=== PATIENT | female | born 1980 | race Caucasian/White ===

== ENCOUNTER → 2021-12-04 | Outpatient (CLI) | payer OTHER ==
[2021-12-04 13:28] VITALS: BP 140/69; PULSE 124; RESP 16; TEMP 98.1; BMI 35.4
--- NOTE | 2021-12-04 14:11 | P.HPBAR ---
Bariatric H&P - History & Physicial H&P Date: 12/04/21 History & Physicial: Visit/CC: Initial Visit Patient initial contact: Initial weight: 96.615 kg Initial weight in pounds: 213.00 Height: 5 ft 5 in Initial BMI: 35.4 Last weight: Current weight: 96.615 kg Current weight in pounds: 213.00 Current BMI: 35.4 [place] body weight (based on NIH guidelines): 56.699 kg Excess body weight loss: 0.0% The patient is a 41 year-old F who presents for Bariatric Assessment. 41-year-old female here today to discuss surgical treatment of severe obesity. Patient presents interested in sleeve gastrectomy. Patient with BMI of 35.4. Medical history pertinent to her obesity includes urinary incontinence, hypercholesterolemia, hip arthritis, low vitamin D. Patient current smoker. Patient has minimal GERD symptoms. No history of DVT or dysphagia. Patient does have occasional upper abdominal pain and is concerned about the possibility of gallstones. This has not been looked into previously. Patient's heaviest weight was 222 she is 213 today. Surgical history includes tubal ligation and partial hysterectomy. Review of Systems The patient denies any acute changes in vision or hearing, no dysphagia or odynophagia, no chest pain or shortness of breath, no dysuria or hematuria, no headache, no runny nose, no rectal bleeding or melena, no unexplained weight loss Past Medical History Past Medical History: Osteoarthritis (OA) History of Any Multi-Drug Resistant Organisms: None Reported Past Surgical History: No Surgical Hx Reported Past Anesthesia/Blood Transfusion Reactions: No Reported Reaction Past Psychological History: Depression Smoking Status: Current every day smoker Past Alcohol Use History: Occasional Additional Past Alcohol Use History / Comment(s): smokes 1 pack per day Past Drug Use History: None Reported Surgical - Exam Vital Signs Temp Pulse Resp BP 98.1 F 124 H 16 140/69 12/04/21 13:25 12/04/21 13:25 12/04/21 13:25 12/04/21 13:25 Physical exam: General: Well-developed, well-nourished HEENT: Normocephalic, sclerae nonicteric Abdomen: Nontender, nondistended Extremities: No edema Neuro: Alert and oriented Bariatric Assessment & Plan (1) Severe obesity with body mass index (BMI) of 35.0 to 35.9 and comorbidity Narrative/Plan: 41-year-old female with severe obesity. Surgical options to treat obesity reviewed in detail. Both gastric bypass and sleeve gastrectomy discussed along with the associated risks and benefits. Patient remains interested in sleeve gastrectomy at this time. Patient understands that smoking cessation will be required preoperatively. She states she will start working on that now. We'll order ultrasound abdomen to evaluate for underlying cholelithiasis/cholecystitis. We'll tentatively plan EGD 4 months from now. Status: Acute Bariatric Checklist Checklist: Plan: Checklist: EGD: 1. Hiatal hernia: 2. H. Pylori: HgbA1c: Vitamin D: Smoking: Primary care physician referral: Psychiatry clearance: Cardiology clearance: Sleep study: Diet journal: VTE risk score: VTE risk level: Rehab needs at discharge:
[2021-12-04 15:05] LABS: HCT 39.3 % (34.0-46.0); HGB 12.7 gm/dL (11.4-16.0); MCH 29.5 pg (25.0-35.0); MCHC 32.4 g/dL (31.0-37.0); MCV 91.2 fL (80.0-100.0); Mean Platelet Volume 7.7; Platelet Count 232 k/uL (150-450); RBC 4.31 m/uL (3.80-5.40); RDW 14.7 % (11.5-15.5); WBC 7.9 k/uL (3.8-10.6)
[2021-12-04 23:46] LABS: ALT 25 U/L (8-44); AST 16 U/L (13-35); African American GFR (CKD) 132.9 (60.0-200.0); Albumin 4.4 g/dL (3.8-4.9); Albumin/Globulin Ratio 1.84 (1.60-3.17); Alkaline Phosphatase 74 U/L (41-126); BUN/Creat Ratio 26.37 Ratio (12.00-20.00); Blood Urea Nitrogen 14.9 mg/dL (9.0-27.0); Calcium 9.2 mg/dL (8.7-10.3); Carbon Dioxide 19.7 mmol/L (20.0-27.5); Chloride 106 mmol/L (96-109); Globulin 2.4 g/dL (1.6-3.3); Glucose 94 mg/dL (70-110); Non-African American GFR(CKD) 114.7 (60.0-200.0); Sodium 140 mmol/L (135-145); Total Bilirubin <0.20 mg/dL (0.30-1.20); Total Protein 6.8 g/dL (6.2-8.2)
== END ==
LOC: BARWHC3 13:11
PROVIDERS: ATTEND Surgery
DX: E66.01 Morbid (severe) obesity due to excess calories (principal); E78.00 Pure hypercholesterolemia, unspecified; M19.90 Unspecified osteoarthritis, unspecified site; F32.A Depression, unspecified; F17.210 Nicotine dependence, cigarettes, uncomplicated; Z68.35 Body mass index [BMI] 35.0-35.9, adult
CPT/HCPCS: 84425; 80053; 82607; 85027; 82306; 83036; 93005; 36415; G0463; 99203

== ENCOUNTER 2022-02-03 10:04 | Day surgery (SDC) | payer OTHER ==
[2022-01-29 15:04] VITALS: BMI 36.6
[~2022-02-03 10:04] MED LIST: LACTATED RINGERS 1,000 ML IV SCH; LIDOCAINE 1% (10MG/ML) FOR IV START INTRADERMA PRN
[2022-02-03 10:29] VITALS: RESP 16; TEMP 98.7
[2022-02-03] MEDS ORDERED: PROPOFOL 10 MG/ML 20 ML VIAL IV ONE (11:03)
[2022-02-03] MEDS ORDERED: LIDOCAINE 1% INJ 10MG/ML (20 ML MDV) ONE (11:03)
--- NOTE | 2022-02-03 11:06 | P.GSHP ---
History of Present Illness H&P Date: 02/03/22 Chief Complaint: GERD Patient here today for upper endoscopy. Patient previously seen in the bariatric clinic. Mild reflux symptoms. Patient interested in sleeve gastrectomy. Past Medical History Past Medical History: GERD/Reflux, Hyperlipidemia, Osteoarthritis (OA) Additional Past Medical History / Comment(s): prolapsed bladder, wears brace on rt wrist, hx gallbladder spasms/stones History of Any Multi-Drug Resistant Organisms: None Reported Past Surgical History: Hysterectomy, Tubal Ligation Additional Past Surgical History / Comment(s): mult surgeries rt wrist including fusion(last 08/2021) Past Anesthesia/Blood Transfusion Reactions: No Reported Reaction Smoking Status: Former smoker - Past Family History Mother Family Medical History: No Reported History Medications and Allergies Home Medications Medication Instructions Recorded Confirmed Type Biotin(Dose Unknown) 1 tab PO DAILY 01/29/22 01/29/22 History Collagen(Dose Unknown) 1 tab PO DAILY 01/29/22 01/29/22 History Multivitamins, Thera [Multivitamin 1 tab PO DAILY 01/29/22 01/29/22 History (formulary)] buPROPion HCL [Wellbutrin SR] 150 mg PO QAM 01/29/22 02/03/22 History Allergies Allergy/AdvReac Type Severity Reaction Status Date / Time No Known Allergies Allergy Verified 02/03/22 10:22 Surgical - Exam Vital Signs Temp Pulse Resp BP Pulse Ox 98.7 F 84 16 1148/75 98 02/03/22 10:28 02/03/22 10:28 02/03/22 10:28 02/03/22 10:28 02/03/22 10:28 Physical exam: General: Well-developed, well-nourished HEENT: Normocephalic, sclerae nonicteric Abdomen: Nontender, nondistended Extremities: No edema Neuro: Alert and oriented Assessment and Plan (1) GERD (gastroesophageal reflux disease) Narrative/Plan: Will proceed with upper endoscopy at this time. Current Visit: Yes Status: Acute Code(s): K21.9 - GASTRO-ESOPHAGEAL REFLUX DISEASE WITHOUT ESOPHAGITIS SNOMED Code(s): 746546595
--- NOTE | 2022-02-03 11:15 | P.PCN ---
Date of Procedure: 02/03/22 Procedure(s) Performed: Preoperative Dx: GERD, presurgical Postoperative Dx: Mild gastritis Procedure: EGD with Bx Anesthesia: Sedation Endoscopist: Dr. Melvin Specimens: Antrum Endoscopic Procedure: The patient was on the endoscopy table in the left decubitus position. The Olympus gastroscope was inserted into the oropharynx and passed under direct visualization to the region of the third portion of the duodenum. From that point the scope was slowly withdrawn inspecting all surfaces carefully. There were no neoplastic inflammatory or polypoid lesions throughout the duodenum. The pylorus was widely patent. The stomach was carefully inspected. There was mild gastritis present. A biopsy of the antrum took place to rule out H. pylori. Retroflexion revealed a normal hiatus. The esophagus was then carefully examined. There were no neoplastic inflammatory or polypoid lesions throughout the visualized esophagus. The patient was then taken to the recovery room in stable condition per anesthesia guidelines. Recommendations: Resume diet. Await biopsy results. Follow-up bariatric center.
[2022-02-03 11:34] VITALS: BP 126/77; PULSE 76
== END 2022-02-03 11:41 | disposition home or self-care (01) ==
LOC: ORWHC2ENDO 10:04
PROVIDERS: ATTEND Surgery
DX: K29.50 Unspecified chronic gastritis without bleeding (principal); K21.9 Gastro-esophageal reflux disease without esophagitis; E78.5 Hyperlipidemia, unspecified; M19.90 Unspecified osteoarthritis, unspecified site; Z90.710 Acquired absence of both cervix and uterus; Z98.51 Tubal ligation status; Z98.890 Other specified postprocedural states; Z79.899 Other long term (current) drug therapy
CPT/HCPCS: 88305; 43239; J2001; J2704

== ENCOUNTER → 2022-03-30 | Outpatient (CLI) | payer OTHER ==
[2022-03-30 10:53] VITALS: BMI 37.5
== END ==
LOC: BARWHC3 08:36
PROVIDERS: ATTEND Surgery
DX: E66.01 Morbid (severe) obesity due to excess calories (principal); Z71.3 Dietary counseling and surveillance; Z68.37 Body mass index [BMI] 37.0-37.9, adult
CPT/HCPCS: 97804

== ENCOUNTER → 2022-06-16 | Outpatient (CLI) | payer OTHER ==
[2022-06-16 13:23] VITALS: BP 125/88; PULSE 80; RESP 16; TEMP 98.5; BMI 35.7
--- NOTE | 2022-06-16 14:09 | P.BASOAP ---
Subjective Progress Note Date: 06/16/22 Principal diagnosis: Morbid obesity 42-year-old female returns for evaluation. She underwent a recent EGD showing mild gastritis. Patient with rare episodes of reflux controlled with [id number] medications. She remains interested in sleeve gastrectomy. Able to stop smoking in November. Has had slight weight gain as a result of that. She is back on Adipex at this time. Patient has not had any right upper quadrant pain. Has history of previous gallbladder spasm. She was told in the past she did not have gallstones. Objective - Vital Signs Vital signs: Vital Signs Temp 98.5 F 06/16/22 13:21 Pulse 80 06/16/22 13:21 Resp 16 06/16/22 13:21 BP 125/88 06/16/22 13:21 Pulse Ox FiO2 Intake & Output 06/15/22 06/16/22 06/16/22 18:59 06:59 18:59 Weight 98.883 kg - Exam Abdomen: Soft, nontender, nondistended Assessment/Plan (1) Severe obesity with body mass index (BMI) of 35.0 to 35.9 and comorbidity Narrative/Plan: 42-year-old female with history of obesity. Remains interested in sleeve gastrectomy. Surgical consent form with associated risks reviewed in detail with patient. We'll schedule for da Bernice assisted laparoscopic sleeve gastrectomy possible open in the near future. The risks of bleeding, infection, stenosis, stricture, leak, abscess, fistula formation, peritonitis, poor weight loss, reflux, vomiting, conversion to an open procedure, aborting sleeve gastrectomy, LA, PE, DVT, and were discussed. The patient understands and wishes to proceed. Plan: Date: 06/16/22 Initial Weight: 96.615 kg Initial BMI: 34.9 Current Weight: 98.883 kg Current BMI: 35.7 Type of Surgery: Total Volume in Band: Previous Volume: Volume Removed: Volume Added: Band Size:
[2022-06-18 07:21] LABS: Anabasine Urine <2.0 ng/mL (<2.0)
== END ==
LOC: BARWHC3 12:50
PROVIDERS: ATTEND Surgery
DX: E66.01 Morbid (severe) obesity due to excess calories (principal); Z71.51 Drug abuse counseling and surveillance of drug abuser; Z68.35 Body mass index [BMI] 35.0-35.9, adult
CPT/HCPCS: G0480; G0463; 80323; 99211

== ENCOUNTER → 2022-08-24 | Outpatient (CLI) | payer OTHER ==
[2022-08-24 15:14] LABS: Basophils # (A) 0.06 X 10*3/uL (0.00-0.10); Basophils % (A) 0.8 %; Eosinophils # (A) 0.12 X 10*3/uL (0.04-0.35); Eosinophils % (A) 1.5 %; HCT 36.9 % (37.2-46.3); HGB 12.3 g/dL (12.0-15.0); Immature Grans, Automated 0.5 %; Lymphocytes # (A) 2.15 X 10*3/uL (0.90-5.00); Lymphocytes % (A) 27.7 %; MCH 28.6 pg (27.0-32.0); MCHC 33.3 g/dL (32.0-37.0); MCV 85.8 fL (80.0-97.0); Mean Platelet Volume 10.4 fL (9.5-12.2); Monocytes # (A) 0.62 X 10*3/uL (0.20-1.00); NRBC Per 100 WBC 0 /100 WBCS (0.0-0.0); Neutrophils # (A) 4.78 X 10*3/uL (1.80-7.70); Neutrophils % (A) 61.5 %; Platelet Count 241 X 10*3/uL (140-440); RDW 13.4 % (11.5-14.5); WBC 7.77 X 10*3/uL (4.50-10.00)
[2022-08-24 16:11] LABS: ALT 28 U/L (8-44); AST 19 U/L (13-35); African American GFR (CKD) 130.6 (60.0-200.0); Albumin 4.8 g/dL (3.8-4.9); Albumin/Globulin Ratio 1.95 (1.60-3.17); Alkaline Phosphatase 62 U/L (41-126); Blood Urea Nitrogen 15.8 mg/dL (9.0-27.0); Calcium 9.9 mg/dL (8.7-10.3); Carbon Dioxide 25.5 mmol/L (20.0-27.5); Chloride 102 mmol/L (96-109); Globulin 2.4 g/dL (1.6-3.3); Glucose 95 mg/dL (70-110); Non-African American GFR(CKD) 112.7 (60.0-200.0); Potassium 4.2 mmol/L (3.5-5.5); Sodium 138 mmol/L (135-145); Total Bilirubin <0.15 mg/dL (0.30-1.20); Total Protein 7.2 g/dL (6.2-8.2)
== END | disposition home or self-care (01) ==
LOC: LABWHC1 09:35
PROVIDERS: ATTEND Surgery
DX: Z01.812 Encounter for preprocedural laboratory examination (principal)
CPT/HCPCS: 36415; 80053; 85025

== ENCOUNTER 2022-08-31 07:30 | Inpatient (IN) | payer OTHER ==
[~2022-08-31 07:30] MED LIST changes: +DEXAMETHASONE SOD PHOSPHATE 4 MG/ML 1 ML VIAL IV ONE; +ENOXAPARIN 40 MG/0.4 ML SYRINGE SQ PRN; +HYDROmorphone 0.5 MG/0.5 ML SYRINGE IVP PRN; -LACTATED RINGERS 1,000 ML IV SCH; +MIDAZOLAM 2 MG/2 ML VIAL IV PRN; +ONDANSETRON 4 MG/2 ML VIAL IVP ONE
[2022-08-31] MEDS: LACTATED RINGERS 1,000 ML IV SCH (13:35)
--- NOTE | 2022-08-31 14:49 | P.GSHP ---
History of Present Illness H&P Date: 08/31/22 Chief Complaint: Morbid obesity 42-year-old female known to our service. Previously seen in the bariatric clinic. Patient interested in sleeve gastrectomy. Patient with comorbidities including urinary incontinence, hypercholesterolemia, arthritis, low vitamin D. Patient previously a smoker but quit earlier this year. Patient has had intermittent complaints of right flank and side pain. She says she was told she had a spastic gallbladder. She has not had an ultrasound for 7 years. Patient says her pain in the right side has been there for the last 2 days now. Patient requesting gallbladder removal at the time of sleeve gastrectomy today. No nausea or vomiting. No change in the color of her skin urine or stool. Recent EGD showed mild gastritis without hiatal hernia. No history of DVT or dysphagia. BMI 35.3. Past Medical History Past Medical History: GERD/Reflux, Hyperlipidemia, Osteoarthritis (OA) Additional Past Medical History / Comment(s): Wears brace on right wrist. Hx gallbladder spasms/stones. Varicose veins. History of Any Multi-Drug Resistant Organisms: None Reported Past Surgical History: Bladder Surgery, Hysterectomy, Orthopedic Surgery, Tubal Ligation Additional Past Surgical History / Comment(s): Bladder surgery with "vaginal correction", right wrist surgery X3 including fusion, has screws in right hand, partial vaginal hysterectomy. Past Anesthesia/Blood Transfusion Reactions: Previous Problems w/ Anesthesia Additional Past Anesthesia/Blood Transfusion Reaction / Comment(s): "Heart rate was elevated during/after vag hysterectomy". Past Psychological History: Depression Smoking Status: Former smoker Past Alcohol Use History: Occasional Additional Past Alcohol Use History / Comment(s): Quit smoking Nov 2021, started smoking at age 11. "No alcohol in almost 2 weeks". Past Drug Use History: Marijuana Additional Drug Use History / Comment(s): No Marijuana in almost 2 weeks. Normally uses Marijuana 4-5 times week. - Past Family History Mother Family Medical History: No Reported History Sister(s) Family Medical History: Blood Disorder Additional Family Medical History / Comment(s): Factor 5. Medications and Allergies Home Medications Medication Instructions Recorded Confirmed Type Melatonin 5 mg PO HS 08/27/22 08/31/22 History Allergies Allergy/AdvReac Type Severity Reaction Status Date / Time latex Allergy Rash/Hives Verified 08/31/22 13:57 Surgical - Exam Vital Signs Temp Pulse Resp BP Pulse Ox 97.4 F L 88 16 121/82 97 08/31/22 13:29 08/31/22 13:29 08/31/22 13:29 08/31/22 13:29 08/31/22 13:29 Physical exam: General: Well-developed, well-nourished HEENT: Normocephalic, sclerae nonicteric Abdomen: Nontender, nondistended Extremities: No edema Neuro: Alert and oriented Assessment and Plan (1) Severe obesity with body mass index (BMI) of 35.0 to 35.9 and comorbidity Narrative/Plan: 42-year-old female with severe obesity and comorbidities. We'll proceed with laparoscopic da Bernice-assisted sleeve gastrectomy, possible open at this time. We discussed that we would intraoperatively evaluate the patient's gallbladder and if acute cholecystitis was suspected clinically that we would proceed with cholecystectomy at this time. I did offer postponing today's surgery so that we could further workup the patient's gallbladder issues but the patient does not want to do that at this time. The risks of bleeding, infection, stenosis, stricture, leak, abscess, fistula formation, peritonitis, poor weight loss, reflux, vomiting, conversion to an open procedure, aborting sleeve gastrectomy, possible need for cholecystectomy either during this surgery or postoperatively, bile leak, CBD injury, AK, PE, DVT, and were discussed. The patient understands and wishes to proceed. Current Visit: No Status: Acute Code(s): E66.01 - MORBID (SEVERE) OBESITY DUE TO EXCESS CALORIES; Z68.35 - BODY MASS INDEX [BMI] 35.0-35.9, ADULT SNOMED Code(s): 61638964025987
[2022-08-31] MEDS ORDERED: METOPROLOL TARTRATE 5 MG/5 ML VIAL IVP ONE (15:06)
[2022-08-31] MEDS ORDERED: HYDROmorphone (PF) 1 MG/ML ONE (15:06)
[2022-08-31] MEDS ORDERED: NEOSTIGMINE 1 MG/ML 10 ML VIAL ONE (15:06)
[2022-08-31] MEDS ORDERED: fentaNYL (PF) 50 MCG/ML 2 ML AMP ONE (15:06)
[2022-08-31] MEDS ORDERED: PROPOFOL 10 MG/ML 20 ML VIAL IV ONE (15:06)
[2022-08-31] MEDS ORDERED: LIDOCAINE 2% INJ 20 MG/ML (2 ML VIAL) ONE (15:06)
[2022-08-31] MEDS ORDERED: ROCURONIUM 10 MG/ML (5 ML VIAL) IV ONE (15:06)
[2022-08-31] MEDS ORDERED: MIDAZOLAM 2 MG/2 ML VIAL ONE (15:06)
[2022-08-31] MEDS ORDERED: GLYCOPYRROLATE 0.2 MG/ML 2 ML VIAL ONE (15:06)
[2022-08-31] MEDS ORDERED: SUCCINYLCHOLINE CHLORIDE 200 MG/10 ML VIAL IV ONE (15:06)
[2022-08-31] MEDS ORDERED: LACTATED RINGERS 1,000 ML IV ONE (15:42)
[2022-08-31] MEDS ORDERED: diphenhydrAMINE 50 MG/ML 1 ML VIAL IVP PRN (17:04)
[2022-08-31] MEDS ORDERED: NALOXONE 0.4 MG/ML 1 ML VIAL IV PRN (17:04)
[2022-08-31] MEDS ORDERED: HYDROmorphone 0.5 MG/0.5 ML SYRINGE IVP PRN (17:04)
--- NOTE | 2022-08-31 17:11 | P.OP ---
Date of Procedure: 08/31/22 Procedure(s) Performed: PREOPERATIVE DIAGNOSIS: Morbid obesity, urinary incontinence, hypercholesterolemia POSTOPERATIVE DIAGNOSIS: Same PROCEDURE: Da Bernice assisted laparoscopic sleeve gastrectomy SURGEON: Olegario EBL: 10 mL ANESTHESIA: General COMPLICATIONS: None OPERATIVE PROCEDURE: Patient was placed in the operating table in the supine position. The patient was then placed under general anesthesia at that time. The abdomen was prepped and draped in the usual sterile fashion. A 5 mm optical trocar was placed in the left upper quadrant 20 cm inferior to the xiphoid process. Insufflation took place up to 15 mmHg. No adhesions were seen. A 5 mm subxiphoid incision was made and the medium Hazel retractor was used to elevate the left lobe of liver anteriorly. This was held in place using the fixed arm retractor. An additional 12 mm trocar was placed in the right paramedian location and 2 additional 8 mm trochars were placed in the left upper quadrant one medial and one lateral to the initially placed optical trocar. All of these trochars were placed along the same plane. The initial 5 was then switched to an 8 mm trocar. The robot was then docked appropriately. The 8 mm camera was placed in the left paramedian trocar site down viewing. A fenestrated bipolar was placed in arm 1, arm 3 had the vessel sealer, arm 4 had the small grasper retractor. The hiatus was inspected and there was no visible hiatal hernia. At that point I moved to the distal aspect of the greater curvature the stomach. The short gastric vasculature were divided using the vessel sealer. This dissection took place distally until we were 4 cm from the pylorus. The posterior adhesions were divided as well. The dissection then took place proximally along the stomach until the posterior short gastrics were divided and the fundus of the stomach was fully mobilized. Once the stomach was fully mobilized the blunt tipped 40-[place] bougie dilator was advanced into the stomach and advanced all the way to the prepyloric location. The patient's stomach by palpation seemed to be of average thickness. No buttressing was utilized. The first firing of the stapler was a green load. No pauses were met. The following staple fires were blue colored. There was a final firing of the stapler the traversed only a 1 cm length of stomach and perigastric fat and this was a white load staple. The staple line was inspected. No bleeding was seen. The stomach was then placed in the right upper quadrant after it was fully excised. The oral gastric tube was reinserted. The stomach was insufflated with approximately 100 mL of methylene blue. No evidence of leak or obstruction was seen. Tisseel fibrin glue was then used along the length of the staple line. The robot was then undocked. The da Bernice laparoscope was used and the stomach was removed from the 12 mm trocar site without difficulty. The fascia at the 12mm site was closed using [id number] 0 Vicryl sutures with the laparoscopic suture passer and Neftaly Ashlee technique. The insufflation was evacuated. The skin at all 5 incisions were closed using 4-0 Monocryl sutures. Skin glue was then applied. DISPOSITION: Stable to recovery room
[2022-08-31] MEDS: ACETAMINOPHEN IV (For NPO) 1,000 MG in EMPTY BAG 1 BAG IVPB SCH (18:22)
[2022-08-31] MEDS: ONDANSETRON 4 MG/2 ML VIAL IVP PRN ×2 (18:32→22:33)
[2022-08-31] MEDS: ALBUTEROL NEBULIZED 2.5 MG/3 ML INHALATION SCH (20:34)
[2022-08-31] MEDS: 0.9% NACL WITH KCL 20 MEQ/L 1,000 ML IV SCH (21:40)
[2022-08-31] MEDS: SIMETHICONE 40 MG/0.6 ML DROPS 2,000 MG/30 ML BOTTLE PO PRN (22:10)
[2022-08-31] MEDS: HYOSCYAMINE ORAL DROPS 1.875 MG/15 ML BOTTLE PO PRN (22:12)
[2022-08-31] MEDS: HYDROmorphone 1 MG/ML 1 ML SYRINGE IVP PRN (22:16)
[2022-09-01] MEDS: 0.9% NACL WITH KCL 20 MEQ/L 1,000 ML IV SCH ×4 (01:03→17:06)
[2022-09-01] MEDS: ACETAMINOPHEN IV (For NPO) 1,000 MG in EMPTY BAG 1 BAG IVPB SCH ×3 (01:05→12:12)
[2022-09-01] MEDS: HYDROmorphone 1 MG/ML 1 ML SYRINGE IVP PRN ×6 (01:14→20:44)
[2022-09-01] MEDS: HYOSCYAMINE ORAL DROPS 1.875 MG/15 ML BOTTLE PO PRN ×4 (04:08→23:42)
[2022-09-01] MEDS: SIMETHICONE 40 MG/0.6 ML DROPS 2,000 MG/30 ML BOTTLE PO PRN ×4 (04:09→23:42)
[2022-09-01] MEDS: LACTATED RINGERS 1,000 ML IV SCH (05:16)
[2022-09-01] MEDS: FAMOTIDINE 20 MG/2 ML VIAL IV SCH ×2 (08:04→19:40)
[2022-09-01] MEDS: ENOXAPARIN 40 MG/0.4 ML SYRINGE SQ SCH ×2 (08:04→19:40)
[2022-09-01] MEDS: ONDANSETRON 4 MG/2 ML VIAL IVP PRN ×2 (08:05→17:14)
[2022-09-01] MEDS: KETOROLAC 15 MG/ML 1 ML VIAL IVP SCH ×4 (08:23→23:40)
[2022-09-01] MEDS: ALBUTEROL NEBULIZED 2.5 MG/3 ML INHALATION SCH ×4 (08:58→21:27)
[2022-09-01 09:35] VITALS: BMI 35.3
[2022-09-01 10:35] LABS: Basophils # (A) 0.02 X 10*3/uL (0.00-0.10); Basophils % (A) 0.2 %; Eosinophils # (A) 0.01 X 10*3/uL (0.04-0.35); Eosinophils % (A) 0.1 %; HCT 34.6 % (37.2-46.3); HGB 11.1 g/dL (12.0-15.0); Immature Grans, Automated 0.4 %; Lymphocytes # (A) 1.37 X 10*3/uL (0.90-5.00); Lymphocytes % (A) 16.6 %; MCH 28.1 pg (27.0-32.0); MCHC 32.1 g/dL (32.0-37.0); MCV 87.6 fL (80.0-97.0); Mean Platelet Volume 10.6 fL (9.5-12.2); Monocytes # (A) 0.67 X 10*3/uL (0.20-1.00); Monocytes % (A) 8.1 %; NRBC Per 100 WBC 0 /100 WBCS (0.0-0.0); Neutrophils # (A) 6.14 X 10*3/uL (1.80-7.70); Neutrophils % (A) 74.6 %; Platelet Count 211 X 10*3/uL (140-440); RBC 3.95 X 10*6/uL (4.10-5.20); RDW 13.2 % (11.5-14.5); WBC 8.24 X 10*3/uL (4.50-10.00)
[2022-09-01 10:51] LABS: African American GFR (CKD) 138.4 (60.0-200.0); Anion Gap 10.1 mmol/L (10.00-18.00); Blood Urea Nitrogen 8.7 mg/dL (9.0-27.0); Calcium 8.5 mg/dL (8.7-10.3); Carbon Dioxide 21.7 mmol/L (20.0-27.5); Non-African American GFR(CKD) 119.4 (60.0-200.0)
[2022-09-01 11:20] LABS: Magnesium 2.1 mg/dL (1.5-2.4)
--- NOTE | 2022-09-01 11:30 | FL ---
SINGLE CONTRAST UPPER GI EXAMINATION: CLINICAL HISTORY: 42-year-old female postop bariatric surgery, spleen hysterectomy yesterday. TECHNIQUE: Single contrast exam performed with 25 mL Isovue-370 contrast. Total fluoroscopy time: 2 minutes 26 seconds. Total images: 23. FINDINGS: The patient swallowed oral contrast without difficulty or delay. Prompt passage of contrast from the esophagus into the proximal stomach. After an initial satisfactory trickle flow of contrast across t he sleeve gastrectomy into the distal stomach, there is subsequent possibility of further flow across the sleeve. Recurrent episodes of gastroesophageal and intraesophageal reflux are encountered. The p atient ingested only half the provided contrast. Contrast pools into the lower third chest level. The re is no evidence of contrast extravasation to suggest leak. Trace postsurgical free air below the ri ght hemidiaphragm. IMPRESSION: 1. Status post sleeve gastrectomy. There is a relative moderate to severe obstruction along the sleev e likely secondary to some residual postoperative edema. Consider follow-up exam. 2. No evidence of leak. 3. Trace postsurgical free air on the right.
[2022-09-01] MEDS: DEXAMETHASONE SOD PHOSPHATE 4 MG/ML 1 ML VIAL IVP SCH ×3 (12:12→23:42)
--- NOTE | 2022-09-01 12:45 | P.PN ---
Subjective Progress Note Date: 09/01/22 CHIEF COMPLAINT: Morbid obesity HISTORY OF PRESENT ILLNESS: Patient is postop day #1 status post da Bernice- assisted laparoscopic sleeve gastrectomy. Patient does report some nausea and she has been burping. She reports that her pain is mostly on the left side but controlled. She denies any flatus. Her upper GI shows relative moderate to severe obstruction along the sleeve likely secondary to some residual postoperative edema. No evidence of leak. Trace posterior free air on the right. Afebrile. WBC is 8.2 for hemoglobin is 11.1 platelets of 211 sodium 134 potassium is 4.0 creatinine 0.5 and mg 2.1 PHYSICAL EXAM: VITAL SIGNS: Reviewed. GENERAL: Well-developed in no acute distress. HEENT: No sclera icterus. Extraocular movements grossly intact. Moist buccal mucosa. Head is atraumatic, normocephalic. ABDOMEN: Soft. Nondistended. Tenderness side of the abdomen. Patient sites clean dry and intact. Abdominal binder in place. NEUROLOGIC: Alert and oriented. Cranial nerves II through XII grossly intact. ASSESSMENT: 1. Morbid obesity, urinary incontinence, hypercholesterolemia status post da Bernice-assisted laparoscopic sleeve gastrectomy 2. Moderate to severe obstruction along the sleeve likely secondary to residual postoperative edema PLAN: -IV Decadron 4 mg every 6 hours scheduled to help with the postoperative edema -Start bariatric clear liquid diet -IV Toradol added for pain -Continue pain control -Continue IV fluids -Encourage patient to ambulate -GI prophylaxis Pepcid and DVT prophylaxis Lovenox Physician Chef Concierge note has been reviewed by physician. Signing provider agrees with the documented findings, assessment, and plan of care. I have personally seen and examined the patient, reviewed the CASH SPECIALIST /PAs history, exam and MDM and agree with the assessment and plan as written. Based on total visit time, I have performed more than 50% of the visit. As above: Patient doing well today. Mild discomfort at the extraction site. Vital signs are stable. He is tolerating liquids. Continue bariatric liquids at this time. Ambulate. Objective - Vital Signs Vital signs: Vital Signs Temp 98.3 F 09/01/22 06:00 Pulse 80 09/01/22 12:16 Resp 15 09/01/22 06:00 BP 100/59 09/01/22 06:00 Pulse Ox 96 09/01/22 09:03 FiO2 Intake & Output 08/31/22 09/01/22 09/01/22 18:59 06:59 18:59 Intake Total 1850 Output Total 10 Balance 1840 Weight 96.3 kg 96.3 kg Intake: IV 1850 Output: Estimated Blood Loss 10 Other: # Voids 1 - Labs CBC & Chem 7: 09/01/22 06:41 09/01/22 06:41 Labs: Abnormal Lab Results - Last 24 Hours (Table) 09/01/22 09/01/22 Range/Units 06:41 06:41 RBC 3.95 L (4.10-5.20) X 10*6/uL Hgb 11.1 L (12.0-15.0) g/dL Hct 34.6 L (37.2-46.3) % Eosinophils # 0.01 L (0.04-0.35) X 10*3/uL Sodium 134 L (135-145) mmol/L BUN 8.7 L (9.0-27.0) mg/dL Creatinine 0.5 L (0.6-1.5) mg/dL Calcium 8.5 L (8.7-10.3) mg/dL
--- NOTE | 2022-09-01 13:04 | P.HPIM ---
History of Present Illness This is a pleasant 42 years old female with past medical history of migraine, gastroesophageal reflux disease,Hyperlipidemia, Osteoarthritis , gallbladder disease. Status post hysterectomy Patient was admitted because of her morbid obesity. Patient is status post laparoscopic sleeve gastrectomy. Today is postoperative day #1. In bed comfortable, she has some pain at the surgical site which is expected. She was on by mouth morning, did not have bowel movement yet. No other significant complaints. No chest pain or dyspnea or headache or weakness or numbness Vitals stable Recent labs from 08/24/2022 are reviewed, showing unremarkable CBC, BMP and liver enzymes. Review of Systems Review of systems CONSTITUTIONAL: No fever, no malaise, no fatigue. HEENT: No recent visual problems or hearing problems. Denied any sore throat. CARDIOVASCULAR: No orthopnea, PND, no palpitations, no syncope. PULMONARY: No shortness of breath, no cough, no hemoptysis. GASTROINTESTINAL: No diarrhea, no nausea, no vomiting, no abdominal pain. Normoactive bowel sounds. NEUROLOGICAL: No headaches, no weakness, no numbness. HEMATOLOGICAL: Denies any bleeding or petechiae. GENITOURINARY: Denies any burning micturition, frequency, or urgency. MUSCULOSKELETAL/RHEUMATOLOGICAL: Denies any joint pain, swelling, or any muscle pain. ENDOCRINE: Denies any polyuria or polydipsia. Past Medical History Past Medical History: GERD/Reflux, Hyperlipidemia, Osteoarthritis (OA) Additional Past Medical History / Comment(s): Wears brace on right wrist. Hx gallbladder spasms/stones. Varicose veins. History of Any Multi-Drug Resistant Organisms: None Reported Past Surgical History: Bladder Surgery, Hysterectomy, Orthopedic Surgery, Tubal Ligation Additional Past Surgical History / Comment(s): Bladder surgery with "vaginal correction", right wrist surgery X3 including fusion, has screws in right hand, partial vaginal hysterectomy. Past Anesthesia/Blood Transfusion Reactions: Previous Problems w/ Anesthesia Additional Past Anesthesia/Blood Transfusion Reaction / Comment(s): "Heart rate was elevated during/after vag hysterectomy". Past Psychological History: Depression Smoking Status: Former smoker Past Alcohol Use History: Occasional Additional Past Alcohol Use History / Comment(s): Quit smoking Nov 2021, started smoking at age 11. "No alcohol in almost 2 weeks". Past Drug Use History: Marijuana Additional Drug Use History / Comment(s): No Marijuana in almost 2 weeks. Normally uses Marijuana 4-5 times week. - Past Family History Mother Family Medical History: No Reported History Sister(s) Family Medical History: Blood Disorder Additional Family Medical History / Comment(s): Factor 5. Medications and Allergies Home Medications Medication Instructions Recorded Confirmed Type Melatonin 5 mg PO HS 08/27/22 08/31/22 History Allergies Allergy/AdvReac Type Severity Reaction Status Date / Time latex Allergy Rash/Hives Verified 08/31/22 13:57 Physical Exam Vitals: Vital Signs Temp Pulse Pulse Resp BP BP Pulse Ox 09/01/22 06:00 98.3 F 98 15 100/59 96 08/31/22 20:15 87 115/74 96 08/31/22 20:00 88 113/74 92 L 08/31/22 19:45 87 105/68 95 08/31/22 19:30 86 105/71 94 L 08/31/22 18:45 91 111/76 97 08/31/22 18:30 94 111/75 93 L 08/31/22 18:15 94 114/81 97 08/31/22 18:08 88 16 147/79 97 08/31/22 18:00 88 127/82 98 08/31/22 17:54 92 16 146/73 96 08/31/22 17:46 94 121/80 98 08/31/22 17:39 89 16 148/74 100 08/31/22 17:30 92 111/70 95 08/31/22 17:22 96.8 F L 90 16 149/75 99 08/31/22 17:15 97.4 F L 88 118/76 97 08/31/22 13:29 97.4 F L 88 16 121/82 97 Intake and Output 08/31/22 09/01/22 09/01/22 22:59 06:59 14:59 Intake Total 1450 Output Total 10 Balance 1440 Intake: IV 1450 Output: Estimated Blood Loss 10 -GENERAL: The patient is alert and oriented x3, not in any acute distress. Obese HEENT: Pupils are round and equally reacting to light. EOMI. No scleral icterus. No conjunctival pallor. Normocephalic, atraumatic. No pharyngeal erythema. No thyromegaly. CARDIOVASCULAR: S1 and S2 present. No murmurs, rubs, or gallops. PULMONARY: Chest is clear to auscultation, no wheezing or crackles. -ABDOMEN: Soft, nontender, nondistended, normoactive bowel sounds. No palpable organomegaly. Laparoscopic once healing MUSCULOSKELETAL: No joint swelling or deformity. EXTREMITIES: No cyanosis, clubbing, or pedal edema. NEUROLOGICAL: Gross neurological examination did not reveal any focal deficits. SKIN: No rashes. no petechiae. Results CBC & Chem 7: 09/01/22 06:41 09/01/22 06:41 Thrombosis Risk Factor Assmnt - Choose All That Apply Each Factor Represents 1 point: Age 41-60 years, Obesity (BMI >25), Varicose veins Other Risk Factors: Yes Each Risk Factor Represents 2 Points: Laparoscopic surgery Other congenital or acquired thrombophilia - If yes, enter type in comment: No Thrombosis Risk Factor Assessment Total Risk Factor Score: 5 Thrombosis Risk Factor Assessment Level: High Risk Assessment and Plan Assessment: Morbid obesity status post laparoscopic sleeve gastrectomy History of GERD History of migraine History of osteoarthritis History of gallbladder disease Status post hysterectomy Plan: This is a pleasant 42 years old female with gastric sleeve gastrectomy Continue with liquid diet Pain management DVT prophylaxis with Lovenox GI prophylaxis with Pepcid Thank you for consulting us, we will follow up as
[2022-09-01] MEDS ORDERED: MELATONIN 5 MG TABLET PO SCH (21:00)
[2022-09-02] MEDS: HYDROmorphone 1 MG/ML 1 ML SYRINGE IVP PRN (02:26)
[2022-09-02] MEDS: DEXAMETHASONE SOD PHOSPHATE 4 MG/ML 1 ML VIAL IVP SCH ×2 (05:47→12:12)
[2022-09-02] MEDS: KETOROLAC 15 MG/ML 1 ML VIAL IVP SCH ×2 (05:47→12:12)
[2022-09-02] MEDS: 0.9% NACL WITH KCL 20 MEQ/L 1,000 ML IV SCH (05:48)
[2022-09-02] MEDS: SIMETHICONE 40 MG/0.6 ML DROPS 2,000 MG/30 ML BOTTLE PO PRN ×2 (05:49→12:12)
[2022-09-02] MEDS: LACTATED RINGERS 1,000 ML IV SCH (05:49)
[2022-09-02] MEDS: HYOSCYAMINE ORAL DROPS 1.875 MG/15 ML BOTTLE PO PRN ×2 (05:49→12:13)
[2022-09-02] MEDS: FAMOTIDINE 20 MG/2 ML VIAL IV SCH (07:55)
[2022-09-02] MEDS: HYDROcodone/APAP 15 ML SOLUTION PO PRN ×2 (07:55→15:42)
[2022-09-02] MEDS: ONDANSETRON 4 MG/2 ML VIAL IVP PRN (07:55)
[2022-09-02] MEDS: ENOXAPARIN 40 MG/0.4 ML SYRINGE SQ SCH (07:55)
[2022-09-02] MEDS ORDERED: bisacodyL 5 MG TABLET.DR PO PRN (08:00)
[2022-09-02] MEDS: ALBUTEROL NEBULIZED 2.5 MG/3 ML INHALATION SCH ×3 (08:12→16:10)
[2022-09-02 10:59] VITALS: BP 105/68; PULSE 64; RESP 16; TEMP 98.4
--- NOTE | 2022-09-02 13:15 | P.DS ---
Providers Date of admission: 08/31/22 12:46 Expected date of discharge: 09/02/22 Attending physician: Juanjo Melvin Consults: 08/31/22 17:04 Consult Physician Routine Consulting Provider: Luis Mancia Consult Reason/Comments: med mgmt Do you want consulting provider notified?: Yes Primary care physician: Bernabe Martinez MD Hospital Course: Discharge diagnoses 1. Morbid obesity, urinary incontinence, hypercholesterolemia status post da Bernice-assisted laparoscopic sleeve gastrectomy 2. Moderate to severe obstruction along the sleeve likely secondary to residual postoperative edema Hospital course This is a 42-year-old female with known history of morbid obesity. She is status post da Bernice-assisted laparoscopic sleeve gastrectomy. Her upper GI had shown relative moderate to severe obstruction along the sleeve likely secondary to some residual postoperative edema. No evidence of leak. Trace postsurgical free air on the right. Patient was started on IV Decadron for the postoperative edema. She is tolerating liquids. Her pain is controlled. She is having flatus. She has been up and ambulating. She is afebrile. She is stable for discharge. Physician Painter Barrel note has been reviewed by physician. Signing provider agrees with the documented findings, assessment, and plan of care. Patient Condition at Discharge: Stable Plan - Discharge Summary Discharge Rx Participant: Yes New Discharge Prescriptions: New Simethicone 40 mg/0.6 ml Drops [Mylicon Drops] 40 mg PO PCHS PRN #30 ml PRN Reason: Gas HYDROcodone/APAP 5-325MG [[place] 5-325] 1 tab PO Q6HR PRN 2 Days #5 tab PRN Reason: Pain bisacodyL [Dulcolax] 5 mg PO DAILY PRN #10 tab PRN Reason: Constipation Omeprazole [PriLOSEC] 40 mg PO DAILY #30 cap Ondansetron Odt [Zofran Odt] 4 mg PO Q8HR PRN #9 tab PRN Reason: Nausea Continue Melatonin 5 mg PO HS Discharge Medication List Melatonin 5 mg PO HS 08/27/22 [History] HYDROcodone/APAP 5-325MG [[place] 5-325] 1 tab PO Q6HR PRN 2 Days #5 tab 09/02/22 [Rx] Omeprazole [PriLOSEC] 40 mg PO DAILY #30 cap 09/02/22 [Rx] Ondansetron Odt [Zofran Odt] 4 mg PO Q8HR PRN #9 tab 09/02/22 [Rx] Simethicone 40 mg/0.6 ml Drops [Mylicon Drops] 40 mg PO PCHS PRN #30 ml 09/02/22 [Rx] bisacodyL [Dulcolax] 5 mg PO DAILY PRN #10 tab 09/02/22 [Rx] Follow up Appointment(s)/Referral(s): [facility] [place] [[facility]] - 09/04/22 10:00 am Juanjo Melvin MD [Medical Doctor] - 09/08/22 Activity/Diet/Wound Care/Special Instructions: No driving while taking [place] No lifting over 10 pounds You may shower. No soaking or tub baths for 2 weeks Very light activity until you are reevaluated at your follow up appointment with your surgeon No straws or carbonated beverages Discharge Disposition: HOME SELF-CARE
--- NOTE | 2022-09-03 00:40 | P.PN ---
Subjective Date date of service for this note: 09/03/2022 This is a pleasant 42 years old female with past medical history of migraine, gastroesophageal reflux disease,Hyperlipidemia, Osteoarthritis , gallbladder disease. Status post hysterectomy Patient was admitted because of her morbid obesity. Patient is status post laparoscopic sleeve gastrectomy. Today is postoperative day #1. In bed comfortable, she has some pain at the surgical site which is expected. She was on by mouth morning, did not have bowel movement yet. No other significant complaints. No chest pain or dyspnea or headache or weakness or numbness Vitals stable Recent labs from 08/24/2022 are reviewed, showing unremarkable CBC, BMP and liver enzymes. Date date of service for this note: 09/03/2022 Patient today was doing well, she looks clinically stable, she is fully awake and oriented. No symptoms of chest pain or dyspnea or vomiting. She tolerated liquid diet well. She has no swallowing difficulty she has no esophageal pain She has no leg edema or swelling. No abdominal pain and her abdomen looks soft. She doesn't have any other medical issue. Vitals stable. No labs from today. Medications reviewed Objective - Vital Signs Vital signs: Vital Signs Temp 98.4 F 09/02/22 08:00 Pulse 92 09/02/22 08:25 Resp 16 09/02/22 08:00 BP 105/68 09/02/22 08:00 Pulse Ox 94 L 09/02/22 08:00 FiO2 Intake & Output 09/02/22 09/02/22 09/03/22 06:59 18:59 06:59 Other: Voiding Method Toilet # Voids 1 - Exam GENERAL: The patient is alert and oriented x3, not in any acute distress. Well developed, well nourished. HEENT: Pupils are round and equally reacting to light. EOMI. No scleral icterus. No conjunctival pallor. Normocephalic, atraumatic. No pharyngeal erythema. No thyromegaly. CARDIOVASCULAR: S1 and S2 present. No murmurs, rubs, or gallops. PULMONARY: Chest is clear to auscultation, no wheezing or crackles. ABDOMEN: Soft, nontender, nondistended, normoactive bowel sounds. No palpable organomegaly. MUSCULOSKELETAL: No joint swelling or deformity. EXTREMITIES: No cyanosis, clubbing, or pedal edema. NEUROLOGICAL: Gross neurological examination did not reveal any focal deficits. SKIN: No rashes. no petechiae. - Labs CBC & Chem 7: 09/01/22 06:41 09/01/22 06:41 Assessment and Plan Assessment: Morbid obesity status post laparoscopic sleeve gastrectomy History of GERD History of migraine History of osteoarthritis History of gallbladder disease Status post hysterectomy Plan: This is a pleasant 42 years old female with gastric sleeve gastrectomy Continue with liquid diet and as per surgery team Pain management Patient looks medical stable. We will defer the management of surgery and postoperative care and diet management to surgery primary team DVT prophylaxis with Lovenox GI prophylaxis with Pepcid Thank you for consulting us
== END 2022-09-02 16:10 | disposition home or self-care (01) | DRG 621 ==
LOC: 2ORMAIN 12:46 → 4SSUR 17:19
PROVIDERS: ADMIT Surgery; ATTEND Surgery
PROC: 0DB64Z3 Excision of Stomach, Percutaneous Endoscopic Approach, Vertical (ICD-10-PCS; principal; 2022-08-31 14:05)
PROC: 3E0333Z Introduction of Anti-inflammatory into Peripheral Vein, Percutaneous Approach (ICD-10-PCS; 2022-09-01)
DX: E66.01 Morbid (severe) obesity due to excess calories (principal); E55.9 Vitamin D deficiency, unspecified; E78.00 Pure hypercholesterolemia, unspecified; R32 Unspecified urinary incontinence; R60.9 Edema, unspecified; R11.0 Nausea; K21.9 Gastro-esophageal reflux disease without esophagitis; K29.70 Gastritis, unspecified, without bleeding; Z87.891 Personal history of nicotine dependence; Z68.35 Body mass index [BMI] 35.0-35.9, adult; Z91.040 Latex allergy status; Z28.310 Unvaccinated for COVID-19
CPT/HCPCS: 74240; 80051; 82310; 82565; 83735; 84100; 84520; 85025; 86850; 86900; 86901; 94640; 94760

== ENCOUNTER → 2022-09-04 | Outpatient (CLI) | payer OTHER ==
[2022-09-04 10:48] VITALS: BP 121/86; PULSE 70; RESP 12; TEMP 98.5
== END | disposition home or self-care (01) ==
LOC: BARWHC3 09:46
PROVIDERS: ATTEND Surgery
DX: Z53.9 Procedure and treatment not carried out, unspecified reason (principal)
CPT/HCPCS: 99211

== ENCOUNTER → 2022-09-08 | Outpatient (CLI) | payer OTHER ==
[2022-09-08 13:34] VITALS: BP 113/62; PULSE 85; RESP 16; TEMP 98.2; BMI 33.4
--- NOTE | 2022-09-08 14:03 | P.BASOAP ---
Subjective Progress Note Date: 09/08/22 Principal diagnosis: Morbid obesity Patient returns after her sleeve gastrectomy 2 weeks ago. Doing well at this time. Does have mild pain at the extraction site. She complains of a rash underneath her pannus. She is tolerating about 45 g of protein daily an approximate 40 ounces of liquids daily. She has lost weight since her last visit. Objective - Vital Signs Vital signs: Vital Signs Temp 98.2 F 09/08/22 13:30 Pulse 85 09/08/22 13:30 Resp 16 09/08/22 13:30 BP 113/62 09/08/22 13:30 Pulse Ox FiO2 Intake & Output 09/07/22 09/08/22 09/08/22 18:59 06:59 18:59 Weight 92.533 kg - Exam abdomen: Soft, nondistended, incision clean and dry, mild induration at extraction site Assessment/Plan (1) Morbid obesity Narrative/Plan: Patient doing well postoperative. Continue gradually increasing diet. Continue increasing fluid intake and protein intake. Patient will be seen by dietary today. Return visit 2 weeks. Plan: Date: 09/08/22 Initial Weight: 96.615 kg Initial BMI: 34.9 Current Weight: 92.533 kg Current BMI: 33.4 Type of Surgery: Vertical Sleeve Gastrectomy Total Volume in Band: Previous Volume: Volume Removed: Volume Added: Band Size:
== END ==
LOC: BARWHC3 12:52
PROVIDERS: ATTEND Surgery
DX: Z71.3 Dietary counseling and surveillance (principal); E66.01 Morbid (severe) obesity due to excess calories; Z68.33 Body mass index [BMI] 33.0-33.9, adult; Z98.84 Bariatric surgery status
CPT/HCPCS: 97802; G0463; 99211

== ENCOUNTER → 2022-09-22 | Outpatient (CLI) | payer OTHER ==
[2022-09-22 14:10] VITALS: BP 104/76; PULSE 76; TEMP 98.4; BMI 32.9
--- NOTE | 2022-09-22 22:30 | P.BASOAP ---
Subjective Progress Note Date: 09/22/22 Principal diagnosis: Morbid obesity Patient returns for recheck. Doing well since last visit. She did have a viral illness she believes with diarrhea and nausea. She did get outpatient IV fluids a week or 2 ago. She has done well since last visit. Excellent liquid and protein intake. She has lost 3 pounds. She is taking every other day antiacids currently. Complaining of arthritis pain. Objective - Vital Signs Vital signs: Vital Signs Temp 98.4 F 09/22/22 14:07 Pulse 76 09/22/22 14:07 Resp BP 104/76 09/22/22 14:07 Pulse Ox FiO2 Intake & Output 09/22/22 09/22/22 09/23/22 06:59 18:59 06:59 Weight 91.172 kg - Exam Abdomen: Soft, nontender, nondistended Assessment/Plan (1) Morbid obesity Narrative/Plan: Patient doing well at this time. Continue dietary and exercise regimen. May use topical NSAIDs. Recheck one month. Plan: Date: 09/22/22 Initial Weight: 96.615 kg Initial BMI: 34.9 Current Weight: 91.172 kg Current BMI: 32.9 Type of Surgery: Total Volume in Band: Previous Volume: Volume Removed: Volume Added: Band Size:
== END ==
LOC: BARWHC3 13:42
PROVIDERS: ATTEND Surgery
DX: E66.01 Morbid (severe) obesity due to excess calories (principal); K21.9 Gastro-esophageal reflux disease without esophagitis; Z91.040 Latex allergy status; Z68.32 Body mass index [BMI] 32.0-32.9, adult
CPT/HCPCS: 97803; G0463; 99211

== ENCOUNTER → 2023-04-20 | Outpatient (CLI) | payer MEDICARE, OTHER ==
[2023-04-20 13:21] VITALS: BP 107/62; PULSE 62; RESP 16; TEMP 98; BMI 26.9
--- NOTE | 2023-04-20 13:48 | P.BASOAP ---
Subjective Progress Note Date: 04/20/23 Principal diagnosis: Morbid obesity Patient returns for reevaluation. She was last seen in December. She has been walking 3-4 times a week long distances and also lifting weights. She has lost 10 pounds since her last visit. She stopped taking her antiacids. Taking peppermint for occasional reflux symptoms. Patient had labs performed last visit which were normal. Objective - Vital Signs Vital signs: Vital Signs Temp 98 F 04/20/23 13:19 Pulse 62 04/20/23 13:19 Resp 16 04/20/23 13:19 BP 107/62 04/20/23 13:19 Pulse Ox FiO2 Intake & Output 04/19/23 04/20/23 04/20/23 18:59 06:59 18:59 Weight 74.389 kg - Exam Abdomen: Soft, nontender, nondistended Assessment/Plan (1) Morbid obesity Narrative/Plan: Patient doing well at this time. Continue dietary and exercise regimen. Monitor reflux symptoms. Recheck 2 months. We'll check 6 month labs at that time. Plan: Date: 04/20/23 Initial Weight: 96.615 kg Initial BMI: 34.9 Current Weight: 74.389 kg Current BMI: 26.9 Type of Surgery: Vertical Sleeve Gastrectomy Total Volume in Band: Previous Volume: Volume Removed: Volume Added: Band Size:
== END ==
LOC: BARWHC3 13:06
PROVIDERS: ATTEND Surgery
DX: E66.01 Morbid (severe) obesity due to excess calories (principal); Z71.3 Dietary counseling and surveillance; K21.9 Gastro-esophageal reflux disease without esophagitis; Z68.26 Body mass index [BMI] 26.0-26.9, adult; Z91.040 Latex allergy status
CPT/HCPCS: 97803; G0463; 99211

== ENCOUNTER → 2023-09-07 | Outpatient (CLI) | payer MEDICARE, OTHER ==
[2023-09-07 14:39] VITALS: BP 110/70; PULSE 86; RESP 16; TEMP 98.4; BMI 24.4
--- NOTE | 2023-09-07 14:51 | P.BASOAP ---
Subjective Progress Note Date: 09/07/23 Principal diagnosis: Morbid obesity Patient returns for recheck. Last seen in April. Patient has been having some sporadic right upper quadrant pain that wraps to the back. Prior to surgery she had some workup of her gallbladder that was reportedly normal. Thinks her symptoms are worse now. Often happens while driving. Not related to eating. Still eating small volume. She has lost 15 pounds since her last visit. He is due for annual blood work. Not taking antiacids. Patient also complaining of a rash beneath the pannus. Requesting antifungal. Objective - Vital Signs Vital signs: Vital Signs Temp 98.4 F 09/07/23 14:24 Pulse 86 09/07/23 14:24 Resp 16 09/07/23 14:24 BP 110/70 09/07/23 14:24 Pulse Ox FiO2 Intake & Output 09/06/23 09/07/23 09/07/23 18:59 06:59 18:59 Weight 67.585 kg - Exam Abdomen: Soft, nondistended, mild right upper quadrant tenderness, no palpable hernia, rash beneath pannus Assessment/Plan (1) Morbid obesity Narrative/Plan: 43-year-old female with morbid obesity. Doing well with her weight loss. Unfortunate she does have some right upper quadrant pain. Discussed options of repeating ultrasound to evaluate for biliary colic. Also discussed prescribing nystatin powder for her rash. Patient states she'll be seeing a plastic surgeon in the near future to discuss panniculectomy. Follow-up 6 months. Check annual labs. Plan: Date: 09/07/23 Initial Weight: 96.615 kg Initial BMI: 34.9 Current Weight: 67.585 kg Current BMI: 24.4 Type of Surgery: Vertical Sleeve Gastrectomy Total Volume in Band: Previous Volume: Volume Removed: Volume Added: Band Size:
== END ==
LOC: BARWHC3 14:09
PROVIDERS: ATTEND Surgery
DX: E66.01 Morbid (severe) obesity due to excess calories (principal); R10.11 Right upper quadrant pain; H16.429 Pannus (corneal), unspecified eye; Z68.24 Body mass index [BMI] 24.0-24.9, adult; Z91.040 Latex allergy status
CPT/HCPCS: 99211

== ENCOUNTER → 2023-09-07 | Outpatient (CLI) | payer MEDICARE, OTHER ==
[2023-09-07 19:14] LABS: HCT 40.6 % (37.2-46.3); MCH 29.1 pg (27.0-32.0); MCV 90.8 FL (80.0-97.0); Mean Platelet Volume 10.7 FL (9.5-12.2); NRBC Per 100 WBC 0 X 10*3/uL (0.00-0.01); Platelet Count 233 X 10*3/uL (140-440); RBC 4.47 X 10*6/uL (4.10-5.20); RDW 13.5 % (11.5-14.5); WBC 8.08 X 10*3/uL (4.50-10.00)
[2023-09-07 19:46] LABS: ALT 19 U/L (8-44); AST 18 U/L (13-35); Albumin 4.6 d/dL (3.8-4.9); Alkaline Phosphatase 57 U/L (41-126); Blood Urea Nitrogen 12.6 mg/dL (9.0-27.0); Calcium 9.6 mg/dL (8.7-10.3); Carbon Dioxide 26.2 mmol/L (21.6-31.8); Chloride 100 mmol/L (96-109); Globulin 2.3 d/dL (1.6-3.3); Glucose 81 mg/dL (70-110); Iron 27 UG/DL (50-170); Potassium 4.1 mmol/L (3.5-5.5); Sodium 140 mmol/L (135-145); Total Bilirubin <0.2 mg/dL (0.3-1.2); Total Protein 6.9 d/dL (6.2-8.2)
== END | disposition home or self-care (01) ==
LOC: LABWHC1 13:52
PROVIDERS: ATTEND Surgery
DX: E66.01 Morbid (severe) obesity due to excess calories (principal); K90.89 Other intestinal malabsorption; E55.9 Vitamin D deficiency, unspecified
CPT/HCPCS: 36415; 80053; 82306; 82607; 82746; 83540; 84425; 85027